=== PATIENT | male | born 1960 | race Caucasian/White ===

== ENCOUNTER → 2016-10-24 11:56 | Emergency (ER) | payer BC, OTHER ==
[~2016-10-24 11:56] MED LIST: BSS OPTH.SOL* BTL ONE; Fluorescein Sodium TOPICAL* 1 MG TEST ONE; Tetracaine 0.5% OPTH.SOL 15ML* BTL ONE
[2016-10-24 12:42] VITALS: BP 164/90
--- NOTE | 2016-10-24 12:54 | UC ---
Eye Complaint HPI - HPI Summary HPI Summary: HYDRAULIC FLUID WAS SPLASHED INTO HIS FACE AT WORK ABOUT AN HOUR [employer]. WAS WEARING SAFETY GOGGLES BUT THE FLUID GOT AROUND THEM. EYES ARE RED AND BURNING. FEEL SWOLLEN. VISION SEEMS "CLOUDY". PT FLUSHED BOTH EYES AT WORK AT [employer] FOR ABOUT 11 MIN. DENIES FB SENSATION OR PAIN WITH EOM. NO NAUSEA OR LOOMIS. DOES NOT WEAR CONTACTS. - History of Current Complaint Chief Complaint: UCEye Stated Complaint: FLUID IN EYE Time Seen by Provider: 10/24/16 12:47 Hx Obtained From: Patient Onset/Duration: Sudden Onset, Lasting Hours, Still Present Timing: Constant Severity Initially: Moderate Severity Currently: Moderate Pain Intensity: 3 Pain Scale Used: 0-10 Numeric Aggravating Factor(s): Nothing Alleviating Factor(s): Nothing Associated Signs And Symptoms: Positive: Vision Impairment Bilateral - Allergies/Home Medications Allergies/Adverse Reactions: Allergies Allergy/AdvReac Type Severity Reaction Status Date / Time Shellfish Allergy Allergy Severe Anaphylatic Verified 10/24/16 12:42 Shock Home Medications: Home Medications Ibuprofen TAB* [Motrin TAB* 800 MG] 800 mg PO Q6H PRN 10/24/16 [History Confirmed 10/24/16] PMH/Surg Hx/FS Hx/Imm Hx Endocrine History Of: Denies: Diabetes, Thyroid Disease Cardiovascular History Of: Reports: Hypertension Denies: Cardiac Disorders, Pacemaker/ICD Respiratory History Of: Reports: COPD - Signs of emphysema, Asthma - gone since quitting smoking 13 YEARS AGO GI/ History Of: Denies: Ulcer Psychological History Of: Reports: Anxiety - A LITTLE - Surgical History Surgical History: Yes Surgery Procedure, Year, and Place: Tore bicep off left arm, repaired 2012 [facility] X2, rt knee arthroscopy 2 [facility]. VASCECTOMY, hernia - Family History Known Family History: Positive: Hypertension - Social History Alcohol Use: quit 2015 Alcohol Amount: quit 10 months ago Substance Use Type: None Smoking Status (MU): Former Smoker Type: Cigarettes Amount Used/How Often: 1-2 ppd Length of Time of Smoking/Using Tobacco: 30 + yrs Have You Smoked in the Last Year: No When Did the Patient Quit Smoking/Using Tobacco: 14 YEARS AGO Review of Systems Constitutional: Negative Eyes: Blurred Vision, Eye Redness Respiratory: Negative Cardiovascular: Negative Gastrointestinal: Negative All Other Systems Reviewed And Are Negative: Yes Physical Exam Triage Information Reviewed: Yes Appearance: Well-Appearing, No Pain Distress, Well-Nourished Vital Signs: Initial Vital Signs Temp 98.5 F 10/24/16 12:36 Pulse 71 10/24/16 12:36 Resp 16 10/24/16 12:36 BP 164/90 10/24/16 12:36 Pulse Ox 98 10/24/16 12:36 Vital Signs Reviewed: Yes Eyes: Positive: Conjunctiva Inflamed, Other: - PERRL, EOMI Neck: Positive: Supple Respiratory: Positive: No respiratory distress, No accessory muscle use Cardiovascular: Positive: Pulses Normal Abdomen Description: Positive: Soft Musculoskeletal: Positive: No Edema Neurological: Positive: Alert Psychological: Positive: Age Appropriate Behavior Skin: Negative: rashes Re-Evaluation - Re-Evaluation First Eval Re-Evaluation Time: 13:28 - FEELS BETTER AFTER 1LNS FLUSHED INTO EACH EYE VIA SHITAL LENS Change: Improved Eye Complaint Course/Dx - Course Course Of Treatment: BOTH EYES IRRIGATED WITH 1L NS VIA SHITAL LENS. PT FEELS BETTER. EYE PH 7 IN RIGHT AND 8 IN LEFT EYE. FLUORESCEIN INSTILLED. SOME MINIMAL UPTAKE INFERIOR TO IRIS BILATERALLY. PT TO FILLOW-UP WITH DR. ISLAS ( [facility]) TODAY AT 3:15PM FOR FURTHER MANAGEMENT. - Differential Dx/Diagnosis Provider Diagnoses: CHEMICAL EYE BURN BILATERALLY Discharge - Discharge Plan Condition: Stable Disposition: HOME Patient Education Materials: [employer] (ED) Referrals: Samir Araujo MD [Primary Care Provider] - If Needed Kyle Anthony MD [Medical Doctor] - Additional Instructions: FOLLOW-UP WITH DR. ISLAS (OPHTHALMOLOGY) TODAY AT 3:15PM FOR RE-EVALUATION.
== END | disposition home or self-care (01) ==
LOC: UCEAST 11:56
DX: T26.92XA Corrosion of left eye and adnexa, part unspecified, initial encounter (principal); T26.91XA Corrosion of right eye and adnexa, part unspecified, initial encounter; Y92.9 Unspecified place or not applicable; T65.891A Toxic effect of other specified substances, accidental (unintentional), initial encounter; I10 Essential (primary) hypertension; Z87.891 Personal history of nicotine dependence
CPT/HCPCS: 99213; A9270-GY; G0463

== ENCOUNTER 2021-06-14 16:08 | Inpatient (IN) ==
[2021-06-14 18:00] LABS: ABS Eosinophils 0.2 10^3/ul (0-0.6); ABS Lymphocytes 1.5 10^3/ul (1.0-4.8); ABS Monocytes 0.9 10^3/ul (0-0.8); ABS Neutrophils 8.3 10^3/ul (1.5-7.7); Eosinophil % 1.6 %; Hematocrit 48 % (42-52); Hemoglobin 16.5 g/dL (14.0-18.0); Lymphocyte % 13.5 %; Mean Corpuscular HGB Conc 34 g/dL (31-36); Mean Corpuscular Hemoglobin 33 pg (27-31); Mean Corpuscular Volume 95 fL (80-94); Mean Platelet Volume 7.2 fL (7.4-10.4); Platelet Count 230 10^3/uL (150-450); Red Blood Count 5.08 10^6 /uL (4.18-5.48); Red Cell Distribution Width 13 % (10-15)
[2021-06-14 18:13] LABS: INR 1.29 (0.86-1.15)
[2021-06-14 18:15] LABS: Rapid COVID-19 Molecular Undetected (Undetected)
[2021-06-14 18:20] LABS: Albumin 3.9 g/dL (3.2-5.2); Albumin/Globulin Ratio 1.2 (1-3); Calcium 8.9 mg/dL (8.6-10.3); Globulin 3.3 g/dL (2-4); Magnesium 1.9 mg/dL (1.9-2.7); Potassium 3.8 mmol/L (3.5-5.0); Total Bilirubin 0.7 mg/dL (0.2-1.0); Total Protein 7.2 g/dL (6.4-8.9); eGFR CKD-EPI 95.8 (>60)
[2021-06-14] MEDS ORDERED: Piperacillin/Tazobac ADVAN 3.375 GM in NS 0.9% 100 ml BAG 100 ML IV ONE (18:58)
[2021-06-14] MEDS: methylPREDNISolone 125 mg 2 ML VIAL IV SCH (19:35)
[2021-06-14 21:09] LABS: C Reactive Protein 28.84 mg/L (<8.01)
[2021-06-14] MEDS ORDERED: Azithromycin 500 mg/250 ml NS 500 MG/250 ML BAG IVPB ONE (22:22)
[2021-06-14] MEDS ORDERED: Albuterol HFA INHALER 8 gm MDI INH PRN (22:26)
[2021-06-14] MEDS ORDERED: SILDENAFIL 100 MG PO PRN (22:26)
[2021-06-14] MEDS ORDERED: Vancomycin per Pharmacy 1 EA NOTE FOLLOW UP PRN (22:54)
[2021-06-14] MEDS ORDERED: Vancomycin 1,500 MG in NS 0.9% 250 ml 250 ML IVPB ONE (23:00)
[2021-06-15] MEDS ORDERED: NS 0.9% 250 ml 250 ML ONE (00:20)
[2021-06-15] MEDS: Enoxaparin 40 MG/0.4 ML SYR SUBCUT SCH ×2 (00:26→22:11)
[2021-06-15] MEDS: Cefepime 1 GM in Dextrose 1 GM/50 ML BAG IV SCH ×3 (00:26→23:54)
[2021-06-15 00:48] LABS: Urine Appearance Clear; Urine Bilirubin Negative (Negative); Urine Blood Negative (Negative); Urine Color Yellow; Urine Glucose Negative (Negative); Urine Ketones Negative (Negative); Urine Nitrite Negative (Negative); Urine Protein Negative (Negative); Urine Specific Gravity 1.025 (1.002-1.030); Urine Urobilinogen Negative (Negative)
[2021-06-15] MEDS: methylPREDNISolone 125 mg 2 ML VIAL IV SCH ×3 (04:09→22:10)
[2021-06-15] MEDS: Sodium Chloride(INHALANT)0.9% 5 ML NEB.SOLN INH SCH ×3 (05:59→19:32)
[2021-06-15 06:11] LABS: ABS Lymphocytes 0.7 10^3/ul (1.0-4.8); ABS Monocytes 0.1 10^3/ul (0-0.8); ABS Neutrophils 5.3 10^3/ul (1.5-7.7); Eosinophil % 0.1 %; Hematocrit 47 % (42-52); Hemoglobin 16.2 g/dL (14.0-18.0); Lymphocyte % 11.1 %; Mean Corpuscular HGB Conc 34 g/dL (31-36); Mean Corpuscular Hemoglobin 33 pg (27-31); Mean Corpuscular Volume 95 fL (80-94); Mean Platelet Volume 7.1 fL (7.4-10.4); Platelet Count 224 10^3/uL (150-450); Red Blood Count 4.96 10^6 /uL (4.18-5.48); Red Cell Distribution Width 13 % (10-15); White Blood Count 6.1 10^3/uL (3.5-10.8)
[2021-06-15] MEDS ORDERED: SPIRIVA Respimat (tiotropium) 2.5 mcg/inh Inhaler INH PRN (06:26)
[2021-06-15 06:32] LABS: Calcium 8.9 mg/dL (8.6-10.3); Potassium 4.2 mmol/L (3.5-5.0); eGFR CKD-EPI 102.7 (>60)
[2021-06-15] MEDS: Mometasone/Formoter 200/5 MDI INH SCH ×2 (07:51→19:31)
[2021-06-15] MEDS ORDERED: Vancomycin 1,500 MG in NS 0.9% 250 ml 250 ML IVPB SCH ×2 (12:00→16:00)
[2021-06-16] MEDS: Sodium Chloride(INHALANT)0.9% 5 ML NEB.SOLN INH SCH ×4 (02:07→20:22)
[2021-06-16 03:16] LABS: Urine Appearance Clear; Urine Bilirubin Negative (Negative); Urine Blood Negative (Negative); Urine Color Yellow; Urine Glucose 1+(50 mg/dL) (Negative); Urine Ketones Negative (Negative); Urine Nitrite Negative (Negative); Urine Protein Negative (Negative); Urine Specific Gravity 1.027 (1.002-1.030); Urine Urobilinogen Negative (Negative)
[2021-06-16] MEDS: methylPREDNISolone 125 mg 2 ML VIAL IV SCH ×3 (03:19→20:22)
[2021-06-16 06:31] LABS: ABS Lymphocytes 0.8 10^3/ul (1.0-4.8); ABS Monocytes 0.3 10^3/ul (0-0.8); ABS Neutrophils 16.3 10^3/ul (1.5-7.7); Hematocrit 46 % (42-52); Hemoglobin 15.5 g/dL (14.0-18.0); Lymphocyte % 4.8 %; Mean Corpuscular HGB Conc 34 g/dL (31-36); Mean Corpuscular Hemoglobin 32 pg (27-31); Mean Corpuscular Volume 96 fL (80-94); Mean Platelet Volume 7.8 fL (7.4-10.4); Platelet Count 246 10^3/uL (150-450); Red Blood Count 4.84 10^6 /uL (4.18-5.48); Red Cell Distribution Width 13 % (10-15); White Blood Count 17.5 10^3/uL (3.5-10.8)
[2021-06-16 06:55] LABS: Calcium 9.4 mg/dL (8.6-10.3); Potassium 4.5 mmol/L (3.5-5.0); eGFR CKD-EPI 102.3 (>60)
[2021-06-16] MEDS: Mometasone/Formoter 200/5 MDI INH SCH ×2 (07:05→20:23)
[2021-06-16] MEDS: Cefepime 1 GM in Dextrose 1 GM/50 ML BAG IV SCH ×2 (12:26→23:28)
[2021-06-16] MEDS ORDERED: Vancomycin Trough Check NOTE FOLLOW UP ONE (15:30)
[2021-06-16] MEDS: Enoxaparin 40 MG/0.4 ML SYR SUBCUT SCH (20:22)
[2021-06-17] MEDS: Sodium Chloride(INHALANT)0.9% 5 ML NEB.SOLN INH SCH ×4 (01:12→19:05)
[2021-06-17] MEDS: methylPREDNISolone 125 mg 2 ML VIAL IV SCH ×3 (04:02→21:11)
[2021-06-17 05:39] LABS: ABS Lymphocytes 1.1 10^3/ul (1.0-4.8); ABS Monocytes 0.6 10^3/ul (0-0.8); ABS Neutrophils 15.1 10^3/ul (1.5-7.7); Hematocrit 44 % (42-52); Hemoglobin 14.8 g/dL (14.0-18.0); Lymphocyte % 6.8 %; Mean Corpuscular HGB Conc 34 g/dL (31-36); Mean Corpuscular Hemoglobin 32 pg (27-31); Mean Corpuscular Volume 95 fL (80-94); Mean Platelet Volume 7.7 fL (7.4-10.4); Platelet Count 251 10^3/uL (150-450); Red Blood Count 4.64 10^6 /uL (4.18-5.48); Red Cell Distribution Width 13 % (10-15); White Blood Count 16.8 10^3/uL (3.5-10.8)
[2021-06-17 05:51] LABS: Calcium 8.8 mg/dL (8.6-10.3); Potassium 4.3 mmol/L (3.5-5.0); eGFR CKD-EPI 104.4 (>60)
[2021-06-17] MEDS: Mometasone/Formoter 200/5 MDI INH SCH ×2 (07:17→19:05)
[2021-06-17 11:10] LABS: Adenovirus Undetected (Undetected); Bordetella parapertussis Undetected (Undetected); Bordetella pertussis Undetected (Undetected); Chlamydophila pneumoniae Undetected (Undetected); Coronavirus 229E Undetected (Undetected); Coronavirus HKU1 Undetected (Undetected); Coronavirus NL63 Undetected (Undetected); Coronavirus OC43 Undetected (Undetected); Human Metapneumovirus Undetected (Undetected); Human Rhinovirus/Enterovirus Undetected (Undetected); Influenza A Undetected (Undetected); Influenza B Undetected (Undetected); Mycoplasmoides pneumoniae Undetected (Undetected); Parainfluenza Virus 1 Undetected (Undetected); Parainfluenza Virus 2 Undetected (Undetected); Parainfluenza Virus 3 Undetected (Undetected); Parainfluenza Virus 4 Undetected (Undetected); Respiratory Syncytial Virus Undetected (Undetected); Specimen Source NASOPHARYNGEAL SWAB
[2021-06-17] MEDS ORDERED: Senna TAB 8.6 mg TAB PO PRN (13:18)
[2021-06-17] MEDS ORDERED: Magnesium Hydroxide LIQ 30 ML UDC PO PRN (13:18)
[2021-06-17] MEDS ORDERED: Furosemide 20 mg/2 ml IV VIAL IV ONE (15:05)
[2021-06-17] MEDS: Enoxaparin 40 MG/0.4 ML SYR SUBCUT SCH (21:08)
[2021-06-18] MEDS: Sodium Chloride(INHALANT)0.9% 5 ML NEB.SOLN INH SCH ×3 (01:26→13:26)
[2021-06-18] MEDS: methylPREDNISolone 125 mg 2 ML VIAL IV SCH ×2 (05:33→11:07)
[2021-06-18 06:41] LABS: ABS Lymphocytes 2.4 10^3/ul (1.0-4.8); ABS Neutrophils 11.3 10^3/ul (1.5-7.7); Eosinophil % 0.2 %; Hematocrit 45 % (42-52); Hemoglobin 14.8 g/dL (14.0-18.0); Lymphocyte % 16.4 %; Mean Corpuscular HGB Conc 33 g/dL (31-36); Mean Corpuscular Hemoglobin 32 pg (27-31); Mean Corpuscular Volume 96 fL (80-94); Mean Platelet Volume 7.1 fL (7.4-10.4); Platelet Count 242 10^3/uL (150-450); Red Blood Count 4.65 10^6 /uL (4.18-5.48); Red Cell Distribution Width 13 % (10-15); White Blood Count 14.8 10^3/uL (3.5-10.8)
[2021-06-18 06:56] LABS: Calcium 8.6 mg/dL (8.6-10.3); Potassium 4.3 mmol/L (3.5-5.0)
[2021-06-18] MEDS: Mometasone/Formoter 200/5 MDI INH SCH (07:50)
[2021-06-18 11:21] VITALS: BP 118/75
== END 2021-06-18 15:40 | disposition home or self-care (01) | DRG 142 ==
LOC: ED 16:08 → SUATTDRO 22:18 → EDHOLD 22:30 → MED 06-15 09:25 → MEDTELE 06-17 07:43
PROVIDERS: ADMIT Internal Medicine; ATTEND Internal Medicine

== ENCOUNTER 2021-07-18 12:06 | Inpatient (IN) ==
[2021-07-18 12:48] LABS: Venous Bicarbonate HCO3 32.2 mmol/L (24-28)
[2021-07-18 12:50] LABS: ABS Basophils 0.1 10^3/ul (0-0.2); ABS Lymphocytes 0.7 10^3/ul (1.0-4.8); ABS Monocytes 0.7 10^3/ul (0-0.8); ABS Neutrophils 4.7 10^3/ul (1.5-7.7); Eosinophil % 0.4 %; Hematocrit 46 % (42-52); Hemoglobin 15.8 g/dL (14.0-18.0); Lymphocyte % 11.1 %; Mean Corpuscular HGB Conc 35 g/dL (31-36); Mean Corpuscular Hemoglobin 32 pg (27-31); Mean Corpuscular Volume 93 fL (80-94); Platelet Count 192 10^3/uL (150-450); Red Blood Count 4.92 10^6 /uL (4.18-5.48); Red Cell Distribution Width 13 % (10-15); White Blood Count 6.2 10^3/uL (3.5-10.8)
[2021-07-18 13:04] LABS: Activated Partial Thrombo Time 30.2 seconds (26.0-38.0); INR 1.29 (0.86-1.15)
[2021-07-18 13:06] LABS: Albumin 4.1 g/dL (3.2-5.2); Albumin/Globulin Ratio 1.4 (1-3); C Reactive Protein 25.5 mg/L (<8.01); Calcium 9.5 mg/dL (8.6-10.3); Globulin 2.9 g/dL (2-4); Potassium 3.6 mmol/L (3.5-5.0); Total Bilirubin 1.1 mg/dL (0.2-1.0); eGFR CKD-EPI 84.1 (>60)
[2021-07-18 13:07] LABS: Troponin I 0.01 ng/mL (<0.03)
[2021-07-18 13:52] LABS: Ferritin 787.3 ng/mL (24-336)
[2021-07-18] MEDS ORDERED: Albuterol/Ipratropium NEB.SOL (2.5/0.5 MG) 3 ML NEB.SOLN INH ONE (13:59)
[2021-07-18] MEDS ORDERED: Albuterol/Ipratropium NEB.SOL (2.5/0.5 MG) 3 ML NEB.SOLN INH PRN (15:03)
[2021-07-18] MEDS ORDERED: methylPREDNISolone 125 mg 2 ML VIAL IV ONE (15:04)
[2021-07-18] MEDS ORDERED: Piperacillin/Tazobac ADVAN 3.375 GM in NS 0.9% 100 ml BAG 100 ML IV ONE (15:07)
[2021-07-18] MEDS ORDERED: Vancomycin 1,500 MG in NS 0.9% 250 ml 250 ML IVPB ONE (15:14)
[2021-07-18] MEDS ORDERED: NS 0.9% 250 ml 250 ML ONE (15:16)
[2021-07-18] MEDS: Enoxaparin 40 MG/0.4 ML SYR SUBCUT SCH (15:25)
[2021-07-18] MEDS ORDERED: Zosyn per Pharmacy NOTE FOLLOW UP SCH (16:00)
[2021-07-18] MEDS: ZOSYN 3.375 GM Q8H per EXTENDED INFUSION IV SCH (19:30)
[2021-07-18] MEDS: methylPREDNISolone SOD 40 mg/ml 1 ml VIAL IV SCH (21:24)
[2021-07-19] MEDS: ZOSYN 3.375 GM Q8H per EXTENDED INFUSION IV SCH ×3 (03:18→20:19)
[2021-07-19 04:23] LABS: ABS Lymphocytes 0.5 10^3/ul (1.0-4.8); ABS Monocytes 0.2 10^3/ul (0-0.8); ABS Neutrophils 4.8 10^3/ul (1.5-7.7); Eosinophil % 0.1 %; Hematocrit 45 % (42-52); Lymphocyte % 9.2 %; Mean Corpuscular HGB Conc 34 g/dL (31-36); Mean Corpuscular Hemoglobin 32 pg (27-31); Mean Corpuscular Volume 95 fL (80-94); Mean Platelet Volume 6.9 fL (7.4-10.4); Platelet Count 160 10^3/uL (150-450); Red Blood Count 4.68 10^6 /uL (4.18-5.48); Red Cell Distribution Width 13 % (10-15); White Blood Count 5.5 10^3/uL (3.5-10.8)
[2021-07-19 04:40] LABS: Calcium 8.8 mg/dL (8.6-10.3); Phosphorus 3.5 mg/dL (2.5-5.0); eGFR CKD-EPI 76.9 (>60)
[2021-07-19] MEDS: SPIRIVA Respimat (tiotropium) 2.5 mcg/inh Inhaler INH SCH (07:33)
[2021-07-19] MEDS: methylPREDNISolone SOD 40 mg/ml 1 ml VIAL IV SCH ×3 (08:01→22:02)
[2021-07-19] MEDS: guaiFENesin/CODIENE 100mg/10mg 5 ML UDC PO PRN (08:45)
[2021-07-19] MEDS: Enoxaparin 40 MG/0.4 ML SYR SUBCUT SCH (14:10)
[2021-07-20] MEDS: ZOSYN 3.375 GM Q8H per EXTENDED INFUSION IV SCH ×3 (02:45→19:32)
[2021-07-20] MEDS: guaiFENesin/CODIENE 100mg/10mg 5 ML UDC PO PRN ×2 (03:21→22:18)
[2021-07-20 05:04] LABS: ABS Lymphocytes 0.8 10^3/ul (1.0-4.8); ABS Monocytes 0.6 10^3/ul (0-0.8); ABS Neutrophils 10.5 10^3/ul (1.5-7.7); Hematocrit 42 % (42-52); Hemoglobin 14.4 g/dL (14.0-18.0); Lymphocyte % 6.7 %; Mean Corpuscular HGB Conc 34 g/dL (31-36); Mean Corpuscular Hemoglobin 32 pg (27-31); Mean Corpuscular Volume 94 fL (80-94); Mean Platelet Volume 7.2 fL (7.4-10.4); Platelet Count 172 10^3/uL (150-450); Red Cell Distribution Width 13 % (10-15); White Blood Count 11.9 10^3/uL (3.5-10.8)
[2021-07-20 05:22] LABS: Calcium 8.8 mg/dL (8.6-10.3); Magnesium 2.1 mg/dL (1.9-2.7); Phosphorus 3.7 mg/dL (2.5-5.0); Potassium 4.5 mmol/L (3.5-5.0); eGFR CKD-EPI 102.9 (>60)
[2021-07-20] MEDS: methylPREDNISolone SOD 40 mg/ml 1 ml VIAL IV SCH ×3 (05:44→16:27)
[2021-07-20] MEDS: SPIRIVA Respimat (tiotropium) 2.5 mcg/inh Inhaler INH SCH (07:23)
[2021-07-20] MEDS ORDERED: Albuterol HFA INHALER 8 gm MDI INH PRN (07:32)
[2021-07-20] MEDS ORDERED: Furosemide 20 mg/2 ml IV VIAL IV SLOW PU ONE (08:58)
[2021-07-20 13:47] LABS: Adenovirus Undetected (Undetected); Bordetella parapertussis Undetected (Undetected); Bordetella pertussis Undetected (Undetected); Chlamydophila pneumoniae Undetected (Undetected); Coronavirus 229E Undetected (Undetected); Coronavirus HKU1 Undetected (Undetected); Coronavirus NL63 Undetected (Undetected); Coronavirus OC43 Undetected (Undetected); Human Metapneumovirus Detected (Undetected); Human Rhinovirus/Enterovirus Undetected (Undetected); Influenza A Undetected (Undetected); Influenza B Undetected (Undetected); Mycoplasmoides pneumoniae Undetected (Undetected); Parainfluenza Virus 1 Undetected (Undetected); Parainfluenza Virus 2 Undetected (Undetected); Parainfluenza Virus 3 Undetected (Undetected); Parainfluenza Virus 4 Undetected (Undetected); Respiratory Syncytial Virus Undetected (Undetected); Specimen Source NASOPHARYNGEAL SWAB
[2021-07-20] MEDS: Enoxaparin 40 MG/0.4 ML SYR SUBCUT SCH (16:26)
[2021-07-21] MEDS: ZOSYN 3.375 GM Q8H per EXTENDED INFUSION IV SCH ×3 (03:12→21:01)
[2021-07-21] MEDS: guaiFENesin/CODIENE 100mg/10mg 5 ML UDC PO PRN ×2 (05:35→21:02)
[2021-07-21 05:53] LABS: ABS Lymphocytes 1.5 10^3/ul (1.0-4.8); ABS Monocytes 1.1 10^3/ul (0-0.8); ABS Neutrophils 9.7 10^3/ul (1.5-7.7); Eosinophil % 0.1 %; Hematocrit 42 % (42-52); Hemoglobin 14.3 g/dL (14.0-18.0); Lymphocyte % 12.2 %; Mean Corpuscular HGB Conc 34 g/dL (31-36); Mean Corpuscular Hemoglobin 32 pg (27-31); Mean Corpuscular Volume 94 fL (80-94); Mean Platelet Volume 7.4 fL (7.4-10.4); Platelet Count 189 10^3/uL (150-450); Red Blood Count 4.51 10^6 /uL (4.18-5.48); Red Cell Distribution Width 13 % (10-15); White Blood Count 12.4 10^3/uL (3.5-10.8)
[2021-07-21 06:20] LABS: Calcium 8.2 mg/dL (8.6-10.3)
[2021-07-21 06:26] LABS: Phosphorus 2.9 mg/dL (2.5-5.0); eGFR CKD-EPI 104.6 (>60)
[2021-07-21] MEDS: SPIRIVA Respimat (tiotropium) 2.5 mcg/inh Inhaler INH SCH (08:54)
[2021-07-21] MEDS: methylPREDNISolone SOD 40 mg/ml 1 ml VIAL IV SCH ×2 (08:59→16:56)
[2021-07-21] MEDS ORDERED: Polyethylene Glycol 3350 17 GM PACKET PO SCH (12:00)
[2021-07-21] MEDS: Enoxaparin 40 MG/0.4 ML SYR SUBCUT SCH (16:56)
[2021-07-21] MEDS: Polyethylene Glycol 3350 17 GM PACKET PO SCH (21:07)
[2021-07-22] MEDS: ZOSYN 3.375 GM Q8H per EXTENDED INFUSION IV SCH ×3 (02:28→19:43)
[2021-07-22] MEDS: SPIRIVA Respimat (tiotropium) 2.5 mcg/inh Inhaler INH SCH (07:44)
[2021-07-22] MEDS: guaiFENesin/CODIENE 100mg/10mg 5 ML UDC PO PRN ×2 (09:53→16:37)
[2021-07-22] MEDS: methylPREDNISolone SOD 40 mg/ml 1 ml VIAL IV SCH ×2 (09:54→16:42)
[2021-07-22] MEDS: Enoxaparin 40 MG/0.4 ML SYR SUBCUT SCH (16:42)
[2021-07-22] MEDS: Polyethylene Glycol 3350 17 GM PACKET PO SCH (19:46)
[2021-07-23 05:21] LABS: Hematocrit 41 % (42-52); Hemoglobin 14.1 g/dL (14.0-18.0); Mean Corpuscular HGB Conc 34 g/dL (31-36); Mean Corpuscular Hemoglobin 32 pg (27-31); Mean Corpuscular Volume 94 fL (80-94); Mean Platelet Volume 7.4 fL (7.4-10.4); Platelet Count 187 10^3/uL (150-450); Red Blood Count 4.37 10^6 /uL (4.18-5.48); Red Cell Distribution Width 13 % (10-15); White Blood Count 9.6 10^3/uL (3.5-10.8)
[2021-07-23 05:35] LABS: Calcium 8.4 mg/dL (8.6-10.3); Potassium 4.7 mmol/L (3.5-5.0); eGFR CKD-EPI 104.2 (>60)
[2021-07-23 05:36] LABS: ABS Lymphocytes 1.8 10^3/ul (1.0-4.8); ABS Monocytes 0.5 10^3/ul (0-0.8); ABS Neutrophils 7.3 10^3/ul (1.5-7.7); Eosinophil % 0.1 %; Lymphocyte % 18.8 %; Nucleated Red Blood Cells % 0.1
[2021-07-23] MEDS: guaiFENesin/CODIENE 100mg/10mg 5 ML UDC PO PRN (08:25)
[2021-07-23] MEDS ORDERED: Furosemide 20 mg/2 ml IV VIAL IV SLOW PU ONE (09:00)
[2021-07-23] MEDS ORDERED: methylPREDNISolone SOD 40 mg/ml 1 ml VIAL IV SCH (09:00)
[2021-07-23] MEDS: SPIRIVA Respimat (tiotropium) 2.5 mcg/inh Inhaler INH SCH (09:17)
[2021-07-23 12:41] VITALS: BP 146/77
[2021-07-23] MEDS: Enoxaparin 40 MG/0.4 ML SYR SUBCUT SCH (16:12)
== END 2021-07-23 17:00 | disposition home or self-care (01) | DRG 720 ==
LOC: ED 12:06 → SUATTDRO 14:56 → EDHOLD 14:56 → ICU 15:49 → MEDTELE 07-21 16:29
PROVIDERS: ADMIT Internal Medicine; ATTEND Hospitalist

== ENCOUNTER 2021-07-28 03:59 | Inpatient (IN) ==
[2021-07-28 04:29] LABS: Venous Bicarbonate HCO3 27.7 mmol/L (24-28)
[2021-07-28 04:38] LABS: ABS Eosinophils 0.1 10^3/ul (0-0.6); ABS Lymphocytes 1.4 10^3/ul (1.0-4.8); ABS Monocytes 0.7 10^3/ul (0-0.8); ABS Neutrophils 19.3 10^3/ul (1.5-7.7); Eosinophil % 0.4 %; Hematocrit 46 % (42-52); Hemoglobin 15.4 g/dL (14.0-18.0); Lymphocyte % 6.6 %; Mean Corpuscular HGB Conc 34 g/dL (31-36); Mean Corpuscular Hemoglobin 32 pg (27-31); Mean Corpuscular Volume 93 fL (80-94); Mean Platelet Volume 7.6 fL (7.4-10.4); Platelet Count 268 10^3/uL (150-450); Red Blood Count 4.88 10^6 /uL (4.18-5.48); Red Cell Distribution Width 14 % (10-15); White Blood Count 21.6 10^3/uL (3.5-10.8)
[2021-07-28 04:45] LABS: ALT 57 U/L (7-52); Albumin 3.7 g/dL (3.2-5.2); Albumin/Globulin Ratio 1.4 (1-3); Alkaline Phosphatase 60 U/L (35-149); Blood Urea Nitrogen 22 mg/dL (6-24); CO2 Carbon Dioxide 27 mmol/L (22-32); Calcium 8.4 mg/dL (8.6-10.3); Chloride 100 mmol/L (101-111); Globulin 2.6 g/dL (2-4); Glucose 98 mg/dL (70-100); Sodium 133 mmol/L (135-145); Total Protein 6.3 g/dL (6.4-8.9); eGFR CKD-EPI 96.5 (>60)
[2021-07-28 04:55] LABS: Anion Gap 6 mmol/L (2-11); Potassium 4.4 mmol/L (3.5-5.0)
[2021-07-28 05:00] LABS: AST 21 U/L (13-39)
[2021-07-28 05:02] LABS: Troponin I 0.03 ng/mL (<0.03)
[2021-07-28] MEDS ORDERED: methylPREDNISolone 125 mg 2 ML VIAL IV ONE (05:33)
[2021-07-28] MEDS ORDERED: Albuterol/Ipratropium NEB.SOL (2.5/0.5 MG) 3 ML NEB.SOLN INH PRN (05:35)
[2021-07-28] MEDS ORDERED: Al Hydrox/Mg Hydrox/Simet LIQ 30 ML UDC PO PRN (05:40)
[2021-07-28] MEDS ORDERED: Piperacillin/Tazobac ADVAN 3.375 GM in NS 0.9% 100 ml BAG 100 ML IV ONE (05:42)
[2021-07-28 05:55] LABS: C Reactive Protein 36.89 mg/L (<8.01)
[2021-07-28] MEDS ORDERED: Zosyn per Pharmacy NOTE FOLLOW UP SCH (06:00)
[2021-07-28] MEDS: Potassium Chlor 10 meq TAB PO SCH (08:47)
[2021-07-28] MEDS: Enoxaparin 40 MG/0.4 ML SYR SUBCUT SCH (08:47)
[2021-07-28] MEDS: Mometasone/Formoter 200/5 MDI INH SCH (08:53)
[2021-07-28] MEDS: ZOSYN 3.375 GM Q8H per EXTENDED INFUSION IV SCH ×2 (10:11→18:07)
[2021-07-28] MEDS ORDERED: methylPREDNISolone SOD 40 mg/ml 1 ml VIAL IV SCH (12:00)
[2021-07-28] MEDS ORDERED: Morphine 2 MG/ML SYRINGE IV PRN (21:54)
[2021-07-29] MEDS ORDERED: methylPREDNISolone SOD 40 mg/ml 1 ml VIAL IV SCH (00:30)
[2021-07-29] MEDS: methylPREDNISolone 125 mg 2 ML VIAL IV SCH ×3 (01:09→16:39)
[2021-07-29 03:03] LABS: PCO2 Arterial 44 mmHg (35-45); PO2 Arterial 65 mmHg (80-100)
[2021-07-29] MEDS: ZOSYN 3.375 GM Q8H per EXTENDED INFUSION IV SCH ×2 (03:13→09:06)
[2021-07-29 05:24] LABS: Hematocrit 43 % (42-52); Hemoglobin 14.4 g/dL (14.0-18.0); Mean Corpuscular HGB Conc 34 g/dL (31-36); Mean Corpuscular Hemoglobin 32 pg (27-31); Mean Corpuscular Volume 94 fL (80-94); Mean Platelet Volume 7.1 fL (7.4-10.4); Platelet Count 214 10^3/uL (150-450); Red Blood Count 4.52 10^6 /uL (4.18-5.48); Red Cell Distribution Width 14 % (10-15); White Blood Count 26.6 10^3/uL (3.5-10.8)
[2021-07-29 05:28] LABS: ABS Lymphocytes 0.8 10^3/ul (1.0-4.8); ABS Monocytes 0.4 10^3/ul (0-0.8); ABS Neutrophils 25.4 10^3/ul (1.5-7.7); Lymphocyte % 3.1 %
[2021-07-29 05:41] LABS: Calcium 8.7 mg/dL (8.6-10.3); Potassium 4.5 mmol/L (3.5-5.0); eGFR CKD-EPI 103.3 (>60)
[2021-07-29] MEDS: Potassium Chlor 10 meq TAB PO SCH (09:05)
[2021-07-29] MEDS: Enoxaparin 40 MG/0.4 ML SYR SUBCUT SCH (09:06)
[2021-07-29] MEDS: Mometasone/Formoter 200/5 MDI INH SCH (10:45)
[2021-07-29 12:29] VITALS: BP 125/80
== END 2021-07-29 16:30 | disposition home or self-care (01) | DRG 142 ==
LOC: ED 03:59 → ICU 06:07
PROVIDERS: ADMIT Internal Medicine; ATTEND Surgery Surgical Critical Care

== ENCOUNTER 2021-08-02 15:37 | Inpatient (IN) ==
[2021-08-02 16:31] LABS: ABS Basophils 0.1 10^3/ul (0-0.2); ABS Lymphocytes 0.8 10^3/ul (1.0-4.8); ABS Monocytes 0.7 10^3/ul (0-0.8); ABS Neutrophils 17.7 10^3/ul (1.5-7.7); Eosinophil % 0.2 %; Hematocrit 42 % (42-52); Hemoglobin 14.1 g/dL (14.0-18.0); Mean Corpuscular HGB Conc 33 g/dL (31-36); Mean Corpuscular Hemoglobin 32 pg (27-31); Mean Corpuscular Volume 94 fL (80-94); Mean Platelet Volume 7.7 fL (7.4-10.4); Platelet Count 199 10^3/uL (150-450); Red Blood Count 4.48 10^6 /uL (4.18-5.48); Red Cell Distribution Width 14 % (10-15); White Blood Count 19.4 10^3/uL (3.5-10.8)
[2021-08-02 16:52] LABS: Troponin I 0.01 ng/mL (<0.03)
[2021-08-02 17:09] LABS: Albumin 3.4 g/dL (3.2-5.2); Albumin/Globulin Ratio 1.1 (1-3); Calcium 8.9 mg/dL (8.6-10.3); Potassium 4.7 mmol/L (3.5-5.0); Total Bilirubin 0.7 mg/dL (0.2-1.0); Total Protein 6.4 g/dL (6.4-8.9); eGFR CKD-EPI 103.7 (>60)
[2021-08-02] MEDS ORDERED: Ondansetron 4 mg VIAL 2 MG/ML 2 ml VIAL IV PRN (18:29)
[2021-08-02] MEDS ORDERED: Magnesium Hydroxide LIQ 30 ML UDC PO PRN (18:29)
[2021-08-02] MEDS ORDERED: NS 0.9% 1000 ml BAG 1,000 ML IV SCH (18:30)
[2021-08-02] MEDS ORDERED: Piperacillin/Tazobac ADVAN 3.375 GM in NS 0.9% 100 ml BAG 100 ML IV ONE (18:37)
[2021-08-02] MEDS ORDERED: Zosyn per Pharmacy NOTE FOLLOW UP SCH (19:00)
[2021-08-02 20:32] LABS: Urine Appearance Clear; Urine Bilirubin Negative (Negative); Urine Blood Negative (Negative); Urine Color Yellow; Urine Glucose Negative (Negative); Urine Ketones Negative (Negative); Urine Nitrite Negative (Negative); Urine Protein Negative (Negative); Urine Urobilinogen Negative (Negative)
[2021-08-02] MEDS: Enoxaparin 40 MG/0.4 ML SYR SUBCUT SCH (22:52)
[2021-08-03] MEDS: ZOSYN 3.375 GM Q8H per EXTENDED INFUSION IV SCH ×3 (01:31→15:40)
[2021-08-03] MEDS: Mometasone/Formoter 200/5 MDI INH SCH ×2 (08:04→20:14)
[2021-08-03] MEDS: Potassium Chlor 10 meq TAB PO SCH (08:08)
[2021-08-03 10:10] LABS: ABS Eosinophils 0.2 10^3/ul (0-0.6); ABS Lymphocytes 0.9 10^3/ul (1.0-4.8); ABS Monocytes 0.7 10^3/ul (0-0.8); ABS Neutrophils 11.4 10^3/ul (1.5-7.7); Eosinophil % 1.3 %; Hematocrit 39 % (42-52); Hemoglobin 13.3 g/dL (14.0-18.0); Lymphocyte % 6.7 %; Mean Corpuscular HGB Conc 34 g/dL (31-36); Mean Corpuscular Hemoglobin 32 pg (27-31); Mean Corpuscular Volume 94 fL (80-94); Mean Platelet Volume 7.5 fL (7.4-10.4); Platelet Count 187 10^3/uL (150-450); Red Blood Count 4.13 10^6 /uL (4.18-5.48); Red Cell Distribution Width 14 % (10-15); White Blood Count 13.1 10^3/uL (3.5-10.8)
[2021-08-03 10:27] LABS: Albumin 3.3 g/dL (3.2-5.2); Albumin/Globulin Ratio 1.1 (1-3); Calcium 8.3 mg/dL (8.6-10.3); Globulin 3.1 g/dL (2-4); Potassium 3.6 mmol/L (3.5-5.0); Total Bilirubin 0.9 mg/dL (0.2-1.0); Total Protein 6.4 g/dL (6.4-8.9); eGFR CKD-EPI 100.6 (>60)
[2021-08-03] MEDS: Enoxaparin 40 MG/0.4 ML SYR SUBCUT SCH (20:22)
[2021-08-04] MEDS: ZOSYN 3.375 GM Q8H per EXTENDED INFUSION IV SCH ×3 (00:37→20:10)
[2021-08-04] MEDS: Mometasone/Formoter 200/5 MDI INH SCH ×2 (07:13→20:08)
[2021-08-04 07:14] LABS: ABS Basophils 0.1 10^3/ul (0-0.2); ABS Eosinophils 0.2 10^3/ul (0-0.6); ABS Lymphocytes 2.1 10^3/ul (1.0-4.8); ABS Neutrophils 6.7 10^3/ul (1.5-7.7); Eosinophil % 2.2 %; Hematocrit 37 % (42-52); Hemoglobin 12.9 g/dL (14.0-18.0); Lymphocyte % 20.7 %; Mean Corpuscular HGB Conc 35 g/dL (31-36); Mean Corpuscular Hemoglobin 33 pg (27-31); Mean Corpuscular Volume 94 fL (80-94); Mean Platelet Volume 7.4 fL (7.4-10.4); Platelet Count 188 10^3/uL (150-450); Red Blood Count 3.96 10^6 /uL (4.18-5.48); Red Cell Distribution Width 14 % (10-15); White Blood Count 10.1 10^3/uL (3.5-10.8)
[2021-08-04 07:30] LABS: Calcium 8.5 mg/dL (8.6-10.3); Magnesium 2.1 mg/dL (1.9-2.7); Potassium 4.1 mmol/L (3.5-5.0); eGFR CKD-EPI 102.5 (>60)
[2021-08-04] MEDS: Potassium Chlor 10 meq TAB PO SCH (10:57)
[2021-08-04] MEDS: Enoxaparin 40 MG/0.4 ML SYR SUBCUT SCH (20:10)
[2021-08-05] MEDS: ZOSYN 3.375 GM Q8H per EXTENDED INFUSION IV SCH ×3 (04:21→20:23)
[2021-08-05] MEDS: Potassium Chlor 10 meq TAB PO SCH (09:23)
[2021-08-05] MEDS: Mometasone/Formoter 200/5 MDI INH SCH ×2 (09:24→20:20)
[2021-08-05 19:16] LABS: Anaplasma phagocytophilum Negative (Negative); B. miyamotoi PCR, B Negative (Negative); Babesia divergens/MO-1 Negative (Negative); Babesia ducani Negative (Negative); Ehrlichia chaffeensis Negative (Negative); Ehrlichia ewingii/canis Negative (Negative); Ehrlichia muris eauclairensis Negative (Negative)
[2021-08-05] MEDS: Enoxaparin 40 MG/0.4 ML SYR SUBCUT SCH (20:23)
[2021-08-06] MEDS: ZOSYN 3.375 GM Q8H per EXTENDED INFUSION IV SCH ×3 (04:40→20:40)
[2021-08-06] MEDS ORDERED: methylPREDNISolone 125 mg 2 ML VIAL IV ONE (08:00)
[2021-08-06] MEDS ORDERED: diPHENhydraMINE IV 50 MG/ML 1 ml VIAL (BENADRYL) ONE (08:23)
[2021-08-06] MEDS ORDERED: Heparin 1,000 UNIT/ML 10 ml (10,000 UNITS) CATHLAB/DIALYSIS ONE (08:27)
[2021-08-06] MEDS ORDERED: Midazolam 5 mg/5 ml VIAL 1 mg/ml 5 ml VIAL (5 mg) ONE (08:27)
[2021-08-06] MEDS ORDERED: fentaNYL 100 mcg/2 ml 50 MCG/ML VIAL ONE (08:27)
[2021-08-06] MEDS ORDERED: VERAPAMIL 2.5 MG/ML 2 ML VIAL ** 5 mg/2 ml ONE (08:27)
[2021-08-06] MEDS ORDERED: Heparin 2 UNITS/ML 1000 mls 1,000 ML IV ONE (08:27)
[2021-08-06] MEDS ORDERED: nitroGLYCERIN DRIP 25,000 MCG/250 ML BTL ONE (08:27)
[2021-08-06] MEDS ORDERED: Lidocaine 1% VIAL 10 MG/ML VIAL ONE (08:28)
[2021-08-06] MEDS ORDERED: Iohexol 350 (CONTRAST) 200 ML MDV IV ONE (08:28)
[2021-08-06 09:33] LABS: POC SO2 70 %
[2021-08-06] MEDS: Potassium Chlor 10 meq TAB PO SCH (12:13)
[2021-08-06] MEDS: Mometasone/Formoter 200/5 MDI INH SCH ×2 (12:15→20:57)
[2021-08-06 12:45] LABS: Mycoplasma pneumoniae IgG Ab Negative (Negative); Mycoplasma pneumoniae IgM Ab Negative (Negative)
[2021-08-06] MEDS: Enoxaparin 40 MG/0.4 ML SYR SUBCUT SCH (20:40)
[2021-08-07] MEDS: ZOSYN 3.375 GM Q8H per EXTENDED INFUSION IV SCH ×3 (03:41→20:48)
[2021-08-07 07:21] LABS: POC SO2 67 %
[2021-08-07 07:21] LABS: POC SO2 97 %
[2021-08-07] MEDS: Mometasone/Formoter 200/5 MDI INH SCH ×2 (08:27→20:05)
[2021-08-07] MEDS: Potassium Chlor 10 meq TAB PO SCH (08:28)
[2021-08-07] MEDS: Enoxaparin 40 MG/0.4 ML SYR SUBCUT SCH (20:48)
[2021-08-07] MEDS: Polyethylene Glycol 3350 17 GM PACKET PO SCH (22:03)
[2021-08-08 05:11] LABS: ABS Eosinophils 0.2 10^3/ul (0-0.6); ABS Lymphocytes 2.1 10^3/ul (1.0-4.8); ABS Monocytes 0.5 10^3/ul (0-0.8); ABS Neutrophils 6.8 10^3/ul (1.5-7.7); Eosinophil % 1.7 %; Hematocrit 41 % (42-52); Hemoglobin 13.7 g/dL (14.0-18.0); Mean Corpuscular HGB Conc 33 g/dL (31-36); Mean Corpuscular Hemoglobin 32 pg (27-31); Mean Corpuscular Volume 96 fL (80-94); Platelet Count 221 10^3/uL (150-450); Red Blood Count 4.29 10^6 /uL (4.18-5.48); Red Cell Distribution Width 14 % (10-15); White Blood Count 9.6 10^3/uL (3.5-10.8)
[2021-08-08 05:32] LABS: Calcium 8.5 mg/dL (8.6-10.3); eGFR CKD-EPI 104.6 (>60)
[2021-08-08] MEDS: ZOSYN 3.375 GM Q8H per EXTENDED INFUSION IV SCH ×3 (05:33→21:16)
[2021-08-08] MEDS: Mometasone/Formoter 200/5 MDI INH SCH ×2 (08:35→20:10)
[2021-08-08] MEDS: Potassium Chlor 10 meq TAB PO SCH (08:36)
[2021-08-08] MEDS: Polyethylene Glycol 3350 17 GM PACKET PO SCH (08:47)
[2021-08-08] MEDS: Enoxaparin 40 MG/0.4 ML SYR SUBCUT SCH (21:16)
[2021-08-09] MEDS: ZOSYN 3.375 GM Q8H per EXTENDED INFUSION IV SCH ×3 (04:33→20:30)
[2021-08-09 06:26] LABS: ABS Eosinophils 0.1 10^3/ul (0-0.6); ABS Lymphocytes 1.8 10^3/ul (1.0-4.8); ABS Monocytes 0.5 10^3/ul (0-0.8); ABS Neutrophils 5.8 10^3/ul (1.5-7.7); Eosinophil % 1.8 %; Hematocrit 39 % (42-52); Hemoglobin 13.1 g/dL (14.0-18.0); Lymphocyte % 21.8 %; Mean Corpuscular HGB Conc 33 g/dL (31-36); Mean Corpuscular Hemoglobin 32 pg (27-31); Mean Corpuscular Volume 96 fL (80-94); Mean Platelet Volume 7.1 fL (7.4-10.4); Platelet Count 222 10^3/uL (150-450); Red Blood Count 4.09 10^6 /uL (4.18-5.48); Red Cell Distribution Width 14 % (10-15); White Blood Count 8.3 10^3/uL (3.5-10.8)
[2021-08-09 07:01] LABS: Calcium 8.1 mg/dL (8.6-10.3); Potassium 4.3 mmol/L (3.5-5.0); eGFR CKD-EPI 100.9 (>60)
[2021-08-09] MEDS: Mometasone/Formoter 200/5 MDI INH SCH ×2 (07:01→19:32)
[2021-08-09] MEDS: Polyethylene Glycol 3350 17 GM PACKET PO SCH (08:27)
[2021-08-09] MEDS: Potassium Chlor 10 meq TAB PO SCH (08:27)
[2021-08-09] MEDS: Enoxaparin 40 MG/0.4 ML SYR SUBCUT SCH (20:31)
[2021-08-10] MEDS: ZOSYN 3.375 GM Q8H per EXTENDED INFUSION IV SCH ×2 (03:32→12:48)
[2021-08-10 06:09] LABS: Hematocrit 38 % (42-52); Mean Corpuscular HGB Conc 34 g/dL (31-36); Mean Corpuscular Hemoglobin 33 pg (27-31); Mean Corpuscular Volume 95 fL (80-94); Platelet Count 205 10^3/uL (150-450); Red Cell Distribution Width 14 % (10-15); White Blood Count 6.9 10^3/uL (3.5-10.8)
[2021-08-10 06:23] LABS: Calcium 8.4 mg/dL (8.6-10.3); eGFR CKD-EPI 101.3 (>60)
[2021-08-10 06:26] LABS: ABS Eosinophils 0.2 10^3/ul (0-0.6); ABS Lymphocytes 1.7 10^3/ul (1.0-4.8); ABS Monocytes 0.4 10^3/ul (0-0.8); ABS Neutrophils 4.6 10^3/ul (1.5-7.7); Eosinophil % 2.4 %; Lymphocyte % 24.5 %; Nucleated Red Blood Cells % 0.1
[2021-08-10] MEDS: Mometasone/Formoter 200/5 MDI INH SCH (07:47)
[2021-08-10] MEDS: Polyethylene Glycol 3350 17 GM PACKET PO SCH (08:50)
[2021-08-10] MEDS: Potassium Chlor 10 meq TAB PO SCH (08:50)
[2021-08-10 10:58] VITALS: BP 136/83
== END 2021-08-10 15:47 | disposition home or self-care (01) | DRG 720 ==
LOC: ED 15:37 → SUATTDRO 18:33 → EDHOLD 18:33 → MEDTELE 21:37 → SSU 08-04 14:42
PROVIDERS: ADMIT Physician Assistant; ATTEND Internal Medicine